=== PATIENT | male | born 1980 | race Caucasian/White ===

== ENCOUNTER 2023-03-18 06:45 | Emergency (ER) | payer SELFPAY ==
[2023-03-18] MEDS ORDERED: Dexamethasone 4 mg/ml Vial ONE (08:06)
== END 2023-03-18 08:11 | disposition home or self-care (01) ==
LOC: ERS 06:45
DX: L25.9 Unspecified contact dermatitis, unspecified cause (principal); F17.210 Nicotine dependence, cigarettes, uncomplicated
CPT/HCPCS: 99283; J1100

== ENCOUNTER 2023-12-09 16:16 | Emergency (ER) | payer SELFPAY | END 2023-12-09 17:56 | disposition home or self-care (01) | LOC: ERS 16:16 | DX: R07.89 Other chest pain (principal); F17.210 Nicotine dependence, cigarettes, uncomplicated | CPT/HCPCS: 71045 ==